=== PATIENT | male | born 1950 | race Caucasian/White ===

== ENCOUNTER 2017-04-05 18:43 | Emergency (ER) | payer MEDICARE, OTHER ==
[2017-04-05] MEDS ORDERED: Acetaminophen/Codeine 30-300mg Tablet ONE (19:01)
--- NOTE | 2017-04-05 19:21 | RAD ---
THORACIC SPINE SERIES THREE VIEWS: 04/05/17 HISTORY: Trauma. Vertebral bodies appear fairly normal in height. Slight loss of vertebral body height at T11 is pres ent but this may be chronic. Clinical correlation as to any pain related to this area. There appears to be a small hiatal hernia present. There are arthritic changes noted. IMPRESSION: Minimal loss of vertebral body height of T11. Clinical correlation as to whether any pain is related to this region. POS: [facility]
--- NOTE | 2017-04-05 19:22 | RAD ---
CERVICAL SPINE SERIES TWO VIEWS: 04/05/17 HISTORY: Neck injury. No open mouth views presented for interpretation. The vertebral bodies are normal in height. There i s disc narrowing at C4-5 and more pronounced disc narrowing at C5-6 and C6-7. Degenerative facet louis nges are present. No soft tissue swelling. An open mouth view would be helpful in complete assessmen t. IMPRESSION: Arthritic changes of the spine. POS: [facility]
--- NOTE | 2017-04-05 19:40 | RAD ---
OPEN MOUTH VIEW OF THE CERVICAL SPINE: 04/05/17 HISTORY: Trauma. COMPARISON: AP and lateral views done earlier. This open mouth view shows a normal appearance of the odontoid an d lateral masses of C1. IMPRESSION: Unremarkable open mouth view of the cervical spine. POS: [facility]
[2017-04-05] MEDS ORDERED: HYDROcodone/Acetaminophen 10/325 mg Tablet ONE (22:56)
== END 2017-04-05 23:35 | disposition home or self-care (01) ==
LOC: MADERS 18:43
DX: S16.1XXA Strain of muscle, fascia and tendon at neck level, initial encounter (principal); S29.012A Strain of muscle and tendon of back wall of thorax, initial encounter; Z79.899 Other long term (current) drug therapy; V89.2XXA Person injured in unspecified motor-vehicle accident, traffic, initial encounter
CPT/HCPCS: 72020; 72040; 72072